=== PATIENT | female | born 1980 | race African-American/Black ===

== ENCOUNTER 2017-11-28 14:33 | Emergency (ER) | payer OTHER ==
[~2017-11-28] VITALS: Ht 162.6 cm; Wt 86.2 kg
[2017-11-28] MEDS ORDERED: LITHIUM CARBON600 MG PO (14:50)
[2017-11-28] MEDS ORDERED: HYDROXYZINE HCL25 M1 PO (14:51)
[2017-11-28 15:12] LABS: ANION GAP 12 mmol/L (7-16); BUN 8 mg/dL (7-18); CALCIUM 8.6 mg/dL (8.5-10.1); CHLORIDE 102 mmol/L (98-107); CO2 25 mmol/L (21-32); CREATININE 1.2 mg/dL (0.6-1.3); GLUCOSE 108 mg/dL (70-99); POTASSIUM 3.1 mmol/L (3.5-5.1); SODIUM 139 mmol/L (136-145)
[2017-11-28 15:13] LABS: ABSOLUTE EOSINOPHILS 0.1 thou/uL (0.0-0.7); ABSOLUTE LYMPHOCYTES 1.6 thou/uL (0.8-5.3); ABSOLUTE MONOCYTES 0.5 thou/uL (0.0-1.2); ABSOLUTE NEUTROPHILS 3.5 thou/uL (1.6-8.1); BASOPHILS 0.5 %; HEMATOCRIT 33.1 % (37.0-47.0); HEMOGLOBIN 10.6 gm/dL (12.0-15.0); LYMPHOCYTES 28.3 %; MCH 23.5 pg (26.0-34.0); MCHC 32.2 g/dL (28.0-37.0); MONOCYTES 8.7 %; MPV 8.1 fl. (7.2-11.1); NUCLEATED RBCS 0 /100WBC; PLATELET COUNT* 317 thou/uL (150-400); POLYS 61.5 %; RBC 4.53 mil/uL (4.20-5.00); RDW-CV 17.4 % (10.5-14.5); WBC 5.7 thou/uL (4.0-11.0)
[2017-11-28 15:25] LABS: ALBUMIN 3.5 g/dL (3.4-5.0); ALKALINE PHOSPHATASE 68 U/L (46-116); LIPASE 88 U/L (73-393); MAGNESIUM 1.9 mg/dL (1.8-2.4); NT-PRO BRAIN NAT PEPTIDE 42 pg/mL (<300); SGOT 27 U/L (15-37); SGPT 27 U/L (30-65); TOTAL BILIRUBIN 0.3 mg/dL (<0.1-1.0); TROPONIN-I LEVEL <0.06 ng/mL (<0.06)
--- NOTE | 2017-11-28 16:01 | EKG ---
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 11/28/17 1601 1439 1439 Kareem Michelle MD, FACC /EPI
[2017-11-28] MEDS ORDERED: ONDANSETRON HCL4 M2 PO (17:03)
[2017-11-28] MEDS ORDERED: NORCO 5-325 TA1 EACH PO (17:03)
[2017-11-28 17:14] VITALS: BP 122/78
--- NOTE | 2017-11-29 16:27 | EKG ---
[place] [address] ELECTROCARDIOGRAM REPORT Name: MUKHERJEEJUSTUS Ronaldo Room: [facility]#: [id number] Admission: 11/28/17 Attend Phys: Discharge: 11/28/17 Date of : 78 Report #: [id number] THIS REPORT FOR: //name// [facility] ED Test Date: 2017-11-28 Test Time: 16:40:33 Pat Name: JUSTUS MUKHERJEE Department: Room: Gender: F Resolution Rep: Rodrigo BOWEN : 1980 Requested By: Milan Adhikari Order Number: [id number] MD: Kareem Michelle Measurements Intervals [place] Rate: 66 P: 34 CT: 182 QRS: 11 QRSD: 90 T: 7 QT: 430 QTc: 451 Interpretive Statements Sinus rhythm Compared to ECG 11/28/2017 14:39:48 No significant changes Electronically Signed On 11-29-2017 16:27:42 CDT by Kareem Michelle [email or web address] <ELECTRONICALLY SIGNED> By: Kareem Michelle MD, [facility] 11/29/17 1627 [facility] 1640 Kareem Michelle MD, FACC /EPI
== END 2017-11-28 17:15 | disposition home or self-care (01) ==
LOC: M.ERS 14:33
PROVIDERS: Emergency Medicine Emergency Medical Services
DX: R07.89 Other chest pain (principal); I10 Essential (primary) hypertension; F17.210 Nicotine dependence, cigarettes, uncomplicated